=== PATIENT | female | born 1990 | race African-American/Black ===

== ENCOUNTER 2016-08-19 13:57 | Emergency (ER) | payer OTHER | END 2016-08-19 14:06 | disposition home or self-care (01) | LOC: CED 13:57 | DX: J02.0 Streptococcal pharyngitis (principal); F17.200 Nicotine dependence, unspecified, uncomplicated | CPT/HCPCS: 87880; 96372; 99283; J0561 ==

== ENCOUNTER 2016-11-05 13:49 | Emergency (ER) | payer OTHER | END 2016-11-05 15:51 | disposition home or self-care (01) | LOC: CED 13:49 → CFTX 13:49 | DX: J06.9 Acute upper respiratory infection, unspecified (principal); Z87.891 Personal history of nicotine dependence | CPT/HCPCS: 87651; 99283 ==